=== PATIENT | male | born 1975 | race Caucasian/White ===

== ENCOUNTER 2022-06-04 20:05 | Emergency (ER) | payer MEDICAID, OTHER ==
[2022-06-04] MEDS ORDERED: Lidocaine 1% 5 ML VIAL INJECT ONE (20:51)
[2022-06-04] MEDS ORDERED: Bacitracin Oint 1 GM U/D Packet TOP ONE (20:51)
[2022-06-04] MEDS ORDERED: Diphtheria/Tetanus Toxoids,Adult (Td) 0.5 ML SDV IM ONE (21:15)
== END 2022-06-04 22:39 | disposition home or self-care (01) ==
LOC: JP.ED 20:05
DX: S61.210A Laceration without foreign body of right index finger without damage to nail, initial encounter (principal); Z23 Encounter for immunization; Z88.1 Allergy status to other antibiotic agents; W26.8XXA Contact with other sharp object(s), not elsewhere classified, initial encounter
CPT/HCPCS: 12002; 90471; 90714; 99282-25